=== PATIENT | female | born 1985 | race Caucasian/White ===

== ENCOUNTER 2019-02-16 16:53 | Emergency (ER) | payer SELFPAY ==
[2019-02-16] MEDS ORDERED: Zithromax 250 MG TABLET PO ONE (17:20)
[2019-02-16] MEDS ORDERED: DELTASONE 20 MG PO ONE (17:21)
[2019-02-16] MEDS ORDERED: Zithromax 250 MG TABLET ONE (17:23)
[2019-02-16] MEDS ORDERED: DELTASONE 20 MG ONE (17:23)
--- NOTE | 2019-02-16 17:48 | ERPHSYRPT ---
- History of Present Illness Time Seen by Provider: 02/16/19 17:20 Source: patient Exam Limitations: clinical condition Patient Subjective Stated Complaint: sorethroat, stuffy nose, cough, ear aches Triage Nursing Assessment: Coarse lung sounds on left base, hypertensive, throat red, no blisters, denies pain, Physician History: PATIENT COMPLAINS OF SORETHROAT, HOARSNESS, NASAL CONGESTION FOR 2 DAYS, AND OCCASIONAL NONPRODUCTIVE COUGH. DENIES DIFFICULTY BREATHING, FEVER OR CHILLS. Timing/Duration: yesterday Cough Quality/Degree: moderate, dry cough Possible Cause: occasional episodes Modifying Factors: Improves With: nothing, other (HAS SORETHROAT) Associated Symptoms: nasal congestion, sore throat International travel in last 2 weeks: No Allergies/Adverse Reactions: bee venom protein (honey bee) Allergy (Verified 02/16/19 17:12) Penicillins Allergy (Verified 02/16/19 17:12) pork derived (porcine) Allergy (Verified 02/16/19 17:12) tramadol Allergy (Verified 02/16/19 17:12) - Review of Systems Constitutional: No Fever, No Chills Eyes: No Symptoms Ears, Nose, & Throat: No Symptoms, Throat Pain, Hoarse Respiratory: No Symptoms, No Cough, No Dyspnea Cardiac: No Symptoms, No Chest Pain, No Edema, No Syncope Abdominal/Gastrointestinal: No Symptoms, No Abdominal Pain, No Nausea, No Vomiting, No Diarrhea Genitourinary Symptoms: No Symptoms, No Dysuria Musculoskeletal: No Back Pain, No Neck Pain Skin: No Rash Neurological: No Symptoms, No Dizziness, No Focal Weakness, No Sensory Changes Psychological: No Symptoms Endocrine: No Symptoms All Other Systems: Reviewed and Negative - Past Medical History Pertinent Past Medical History: Yes Neurological History: Migraines Cardiac History: Hypertension - Past Surgical History Past Surgical History: Yes Other Surgical History: tubes, cysts removed from ovaries - Social History Smoking Status: Never smoker Exposure to second hand smoke: Yes Drug Use: none Patient Lives Alone: No - Female History Hx Now: No - Nursing Vital Signs Nursing Vital Signs: Initial Vital Signs Temperature 98.3 F 02/16/19 17:02 Pulse Rate 99 H 02/16/19 17:02 Blood Pressure 179/123 02/16/19 17:02 O2 Sat by Pulse Oximetry 98 02/16/19 17:02 Pain Scale Pain Intensity 0 - Physical Exam General Appearance: no apparent distress, alert Eye Exam: PERRL/EOMI, eyes nml inspection Ears, Nose, Throat Exam: TMs normal, pharynx normal, moist mucous membranes, pharyngeal erythema, tonsillar exudate (PETECHIAE EXUDATES, NO HYPERTROPHY) Neck Exam: normal inspection, non-tender, supple, full range of motion Respiratory Exam: normal breath sounds, lungs clear, No respiratory distress Cardiovascular Exam: regular rate/rhythm, normal heart sounds Gastrointestinal/Abdomen Exam: soft, No tenderness Back Exam: normal inspection, No CVA tenderness, No vertebral tenderness Extremity Exam: normal inspection, normal range of motion Neurologic Exam: alert, oriented x 3, cooperative, normal mood/affect, sensation nml, No motor deficits Skin Exam: normal color, warm, dry, No rash Lymphatic Exam: No adenopathy SpO2: 98 Ordered Tests: Active Orders 24 hr Category Date Time Status Peak Expiratory Flow Rate ONCE RT 02/16/19 17:54 Active Medication Summary Discontinued Medications Generic Name Dose Route Start Last Admin Trade Name Freq PRN Reason Stop Dose Admin Albuterol/Ipratropium 3 ml 02/16/19 17:54 Duoneb 0.5-3 Mg/3 Ml Neb IH 02/16/19 17:55 STAT ONE Albuterol/Ipratropium Confirm 02/16/19 17:58 Duoneb 0.5-3 Mg/3 Ml Neb Administered 02/16/19 17:59 Dose 3 ml IH .STK-MED ONE Azithromycin 500 mg 02/16/19 17:20 02/16/19 17:23 Zithromax 250 Mg Tablet PO 02/16/19 17:21 500 mg STAT ONE Administration Azithromycin Confirm 02/16/19 17:23 Zithromax 250 Mg Tablet Administered 02/16/19 17:24 Dose 500 mg .ROUTE .STK-MED ONE Prednisone 40 mg 02/16/19 17:21 02/16/19 17:23 Deltasone 20 Mg PO 02/16/19 17:22 40 mg STAT ONE Administration Prednisone Confirm 02/16/19 17:23 Deltasone 20 Mg Administered 02/16/19 17:24 Dose 40 mg .ROUTE .STK-MED ONE Lab/Rad Data: Laboratory Results 02/16/19 Range/Units Unknown Group A Strep Antibody NEGATIVE (NEGATIVE) - Progress Progress Note: 02/16/19 17:28 ADMINISTERED ZITHROMAX 500MG AND PREDNISONE 40MG ORALLY Blood Culture(s) Obtained: No Antibiotics given: No Counseled pt/family regarding: lab results, diagnosis, need for follow-up - Departure Departure Disposition: Home Clinical Impression: ACUTE PHARYNGITIS, ACUTE BRONCHITIS, ACUTE LARYNGITIS Condition: Stable Critical Care Time: No Referrals: Provider,Unknown [Primary Care Provider] - Additional Instructions: ANTIBIOTIC ZITHROMAX 250MG, TAKE 2 TABLETS DAY 1, FOLLOWED BY 1 TABLET DAILY FOR 4 DAYS. PREDNISONE 20MG, 2 TABLETS DAILY FOR 3 DAYS. TYLENOL OR MOTRIN NEEDED FOR PAIN, FEVER OR CHILLS. CONSULT YOUR PRIMARY CARE PROVIDER FOR FOLLOWUP. Prescriptions: Azithromycin 250 mg [Zithromax 250 MG TABLET] 250 mg PO ZPACK #6 tablet Prednisone 20 mg [Deltasone 20 mg] 2 tab PO DAILY #6 tablet
[2019-02-16] MEDS ORDERED: DUONEB 0.5-3 MG/3 ml Neb IH ONE ×2 (17:54→17:58)
[2019-02-16 18:17] VITALS: O2SAT 99
[2019-02-16 18:21] VITALS: PULSE 90
[2019-02-16 18:48] VITALS: BP 165/119
== END 2019-02-16 18:47 | disposition home or self-care (01) ==
LOC: ED 16:53
DX: J02.9 Acute pharyngitis, unspecified (principal); J20.9 Acute bronchitis, unspecified; J04.0 Acute laryngitis
CPT/HCPCS: 87651; 94150; 94640; 99283; A9270-GY

== ENCOUNTER 2019-10-11 09:01 | Emergency (ER) | payer MEDICAID ==
[2019-10-11 09:20] VITALS: BP 162/90; O2SAT 100
--- NOTE | 2019-10-11 09:39 | ERPHSYRPT ---
- History of Present Illness Time Seen by Provider: 10/11/19 09:25 Source: patient Exam Limitations: no limitations Patient Subjective Stated Complaint: Pt has had a cough since yesterday, when she coughs it causes her to have lung pressure Triage Nursing Assessment: Pt walked into the ER, dry, non productive cough, lungs clear, rates pleuretic pain as 4/10 when coughing, no other issues at this time Physician History: This is a 33-year-old female who has asthma and is out of her inhaler. She has been coughing for the last 2 days intermittently. She denies fever she denies body aches or muscle aches. She denies nausea vomiting diarrhea. Patient denies chest pain. Timing/Duration: day(s) (2) Cough Quality/Degree: dry cough Possible Cause: occasional episodes Modifying Factors: Improves With: coughing Associated Symptoms: cough International travel in last 2 weeks: No Allergies/Adverse Reactions: bee venom protein (honey bee) Allergy (Verified 10/11/19 09:06) Penicillins Allergy (Verified 10/11/19 09:06) pork derived (porcine) Allergy (Verified 10/11/19 09:06) tramadol Allergy (Verified 10/11/19 09:06) Home Medications: Atorvastatin Calcium [Lipitor] 40 mg PO HS 10/11/19 [History] Escitalopram Oxalate 10 mg [Lexapro 10 MG] 10 mg PO DAILY 10/11/19 [History] Gabapentin 300 mg PO TID 10/11/19 [History] Lisinopril 20 mg [Zestril 20 MG] 20 mg PO DAILY 10/11/19 [History] Metoprolol Succinate 25 mg Xl* [Toprol-Xl 25MG Tablets] 25 mg PO DAILY [History] Montelukast Sodium 10 mg [Singulair 10 MG] 10 mg PO DAILY 10/11/19 [History] Hx Influenza Vaccination/Date Given: No Hx Pneumococcal Vaccination/Date Given: No - Review of Systems Constitutional: No Symptoms Eyes: No Symptoms Ears, Nose, & Throat: No Symptoms Respiratory: Cough, No Dyspnea, No Stridor, No Wheezing Cardiac: No Symptoms, No Chest Pain Abdominal/Gastrointestinal: No Symptoms Genitourinary Symptoms: No Symptoms Musculoskeletal: No Symptoms Skin: No Symptoms Neurological: No Symptoms Psychological: No Symptoms Endocrine: No Symptoms Hematologic/Lymphatic: No Symptoms Immunological/Allergic: No Symptoms All Other Systems: Reviewed and Negative - Past Medical History Pertinent Past Medical History: Yes Neurological History: Migraines Cardiac History: High Cholesterol, Hypertension, Other Respiratory History: Asthma Endocrine Medical History: No Pertinent History Musculoskeletal History: No Pertinent History GI Medical History: No Pertinent History History: No Pertinent History Psycho-Social History: Anxiety, Depression Female Reproductive Disorders: No Pertinent History Other Medical History: cardiomyopathy - Past Surgical History Past Surgical History: Yes Other Surgical History: tubes, cysts removed from ovaries - Social History Smoking Status: Never smoker Exposure to second hand smoke: Yes Drug Use: none Patient Lives Alone: No - Female History Hx Last Menstrual Period: 10/08/2019 Hx Now: No - Nursing Vital Signs Nursing Vital Signs: Initial Vital Signs Temperature 97.6 F 10/11/19 09:11 Pulse Rate 64 10/11/19 09:11 Blood Pressure 162/90 10/11/19 09:11 O2 Sat by Pulse Oximetry 100 10/11/19 09:11 Pain Scale Pain Intensity 4 - Physical Exam General Appearance: no apparent distress, alert, anxiety Eye Exam: PERRL/EOMI, eyes nml inspection Ears, Nose, Throat Exam: normal ENT inspection, moist mucous membranes Neck Exam: normal inspection, non-tender, supple, full range of motion Respiratory Exam: normal breath sounds, lungs clear, airway intact, No chest tenderness, No respiratory distress, No accessory muscle use, No rhonchi, No wheezing, No stridor Cardiovascular Exam: regular rate/rhythm, normal heart sounds, normal peripheral pulses Gastrointestinal/Abdomen Exam: No normal bowel sounds, No tenderness Pelvic Exam: not done Rectal Exam: not done Back Exam: normal inspection, normal range of motion, No CVA tenderness, No vertebral tenderness Extremity Exam: normal inspection, normal range of motion, pelvis stable Neurologic Exam: alert, oriented x 3, cooperative, teletype adjuster II-XII nml as tested Skin Exam: normal color, warm, dry Lymphatic Exam: No adenopathy SpO2 Interpretation: normal SpO2: 100 O2 Delivery: Room Air - Course Nursing assessment & vital signs reviewed: Yes - Progress Progress: unchanged Air Movement: good Progress Note: 10/11/19 09:41 Medical decision making: This patient was offered a chest x-ray and flu swabs. The patient does not have fever she does not have any other symptoms consistent with flu. I do not believe she has pneumonia. We had this discussion and the patient has opted not to undergo a chest x-ray or obtain flu swabs. We will provide her with a prescription for an albuterol inhaler and prednisone. Blood Culture(s) Obtained: No Antibiotics given: No Counseled pt/family regarding: diagnosis, need for follow-up - Departure Departure Disposition: Home Clinical Impression: Asthmatic bronchitis Condition: Stable Critical Care Time: No Additional Instructions: Drink plenty of fluids. Avoid any exposure to any type of smoke. Return to the emergency room or see your primary care physician if you began having fevers chills or flulike symptoms. Prescriptions: Albuterol 2.5 mg/3 ml Neb [Proventil 2.5 mg/3 ml Neb] 2.5 mg IH Q6H #25 neb Prednisone 10 mg [Deltasone 10 mg] 10 mg PO TID #12 tablet
[2019-10-11 09:51] VITALS: PULSE 59
== END 2019-10-11 09:54 | disposition home or self-care (01) ==
LOC: ED 09:01
DX: J45.909 Unspecified asthma, uncomplicated (principal)
CPT/HCPCS: 99283